=== PATIENT | female | born 1945 | race Asian ===

== ENCOUNTER 2020-10-12 17:30 | Emergency (ER) | payer MEDICARE, SELFPAY ==
[2020-10-12 17:31] VITALS: BP 146/73; PULSE 70; RESP 19; TEMP 36.7; O2SAT 97; BMI 19.3
--- NOTE | 2020-10-12 17:50 | CT_ITS ---
Procedure: CT ABDOMEN PELVIS W CON Referring Doctor: Rachid Bolden Patient Age:75Y CLINICAL INDICATION: epigastric pain Epigastric pain and acid reflux nausea 4 days COMPARISON: No exams were available for comparison TECHNIQUE: 75 cc Isovue 370 IV contrast utilized but no oral, enteric contrast given. Helical scanning performed 7 B seconds after contrast as well as 5 minutes delayed image through upper abdomen/liver Axial images obtained with sagittal and coronal reformats. All CT scans at the facility use one or more dose reduction, viz: automated exposure control, ma/kV adjustment per patient size (including targeted exams where dose is matched to indication, i.e. head), or iterative reconstruction technique. FINDINGS: Lower thorax: No acute finding. Trace scarring and atelectasis posterior lung bases. Tiny calcified granulomas posterior right lung base not of concern. Tortuous abdominal aorta. Heart: Borderline to-mild cardiomegaly ABDOMEN: Liver: .. Multiple hepatic cyst-appear to be benign hepatics cyst with no no abnormal enhancement specifically noted bilobed cyst at posterior medial RLL. This measures up to 2.5 cm X 1.7 cm. At the dome liver there multiple cyst largest measuring 19 mm of the posterior dome of liver. Gallbladder: Surgically removed Common duct dilatation of reflecting post cholecystectomy changes most likely. Warrants correlation with serum bilirubin. Common duct measures 9-10 mm just superior to the head of the pancreas. Central biliary radicles are upper normal, but no more proximal intrahepatic biliary ductal dilatation. Pancreas: Satisfactory no masses or peripancreatic fluid collections. Spleen: unremarkable normal size Adrenals: unremarkable ------- tract Kidneys/ureters: No urinary tract obstruction. No discrete calculi. Ureters unremarkable There are some very tiny less than 5-6 mm cyst at the kidneys bilaterally. Barely evident. PELVIS: Retroverted uterus extends to the posterior left pelvis. No adnexal masses but moderate sized. Urinary bladder. No masses or wall thickening or calculi urinary bladder. . GI tract: --------- Stomach: Unremarkable Small bowel: Undigested food and stool-like material throughout terminal ileum and distal most small bowel. This implies impaired impaired peristalsis-/suspect reflecting mild ileus. More proximal at the ileum there is slight increased fluid small bowel with scattered moderate air-fluid levels likely reflect the same.. The jejunum in proximal small bowel is more normal in caliber with some subtle radiopaque material likely from ingested food fluid or medicine Appendix: No evidence of appendicitis Large bowel. Moderate stool solid stool at the right colon and rectosigmoid. Extensive diverticulosis at the sigmoid colon with scattered diverticuli throughout the left colon. No acute diverticulitis Peritoneum: No abnormal fluid collections. No obvious inflammatory changes. No free air. Lymph nodes: No enlarged lymph nodes apparent. Vasculature: No tortuous abdominal aorta with mild atherosclerotic plaque and calcification throughout. No aneurysm.. No significant retroperitoneal findings Bones: No acute fracture nor lesion moderate levoscoliosis lumbar spine the degenerative disc changes and spondylosis lumbar spine IMPRESSION: 1. suspect mild ileus distal small bowel: . undigested food with stool-like material appearance throughout mildly distended terminal ileum and distal ileum-suggest impaired peristalsis most likely reflecting mild ileus. . The proximal ileum demonstrates borderline dilatation with increased fluid, and scattered moderate air-fluid levels of reflecting the same as
--- NOTE | 2020-10-12 17:51 | ECG_ITS ---
APPROVED REPORT Exam: Resting ECG HR:59 bpm ECG Measurements Heart Rate 59 AXES RI 182 P 55 QRSd 88 QRS 48 QT 412 T 44 QTc 407 Conclusion Sinus bradycardia Otherwise normal ECG Electronically signed by : Van Richardson, 10/13/2020 06:51:57
[2020-10-12 18:02] LABS: Microscopic, Urine URINE MICROSCOPIC (MICROSCOPIC)
[2020-10-12 18:03] LABS: Appearance,Urine CLEAR (Clear); Bilirubin,Urine Negative (Negative); Blood, Urine Negative (Negative); Color,Urine YELLOW (Yellow); Glucose,Urine (UA) Negative (Negative); Ketones,Urine Negative (Negative); Leukocyte Esterase,Urine Negative (Negative); Nitrate,Urine Negative (Negative); Protein,Urine Negative (Negative); Specific Gravity, Urine 1.015 (1.005-1.030); Urobilinogen,Urine 0.2 EU/dl (0.2)
[2020-10-12 18:04] LABS: Basophils % 0.5 % (0.1-2.0); Eosinophils # 0.2 K/mm3 (0.0-0.4); Eosinophils % 2.3 % (0.1-12.0); Hematocrit 48.9 % (37.0-47.0); Hemoglobin 16.2 g/dL (12.2-16.2); Lymphocytes # 1.9 K/mm3 (0.7-4.5); Lymphocytes % 21.7 % (10-50); Mean Corpuscular HGB Conc 33.2 g/dL (31.8-35.4); Mean Corpuscular Hemoglobin 30.2 pg (27.0-31.2); Mean Corpuscular Volume 90.8 fl (81-99); Mean Platelet Volume 7.2 fl (7.4-10.4); Monocytes # 0.4 K/mm3 (0.1-1.0); Neutrophils # 6.1 K/mm3 (1.8-7.8); Neutrophils % 71.5 % (37.0-80.0); Platelet Count 327 K/mm3 (142-424); Red Blood Count 5.38 M/mm3 (4.20-5.40); White Blood Count 8.6 K/mm3 (4.8-10.8)
[2020-10-12 18:07] LABS: Lipase 77 U/L (23-300)
[2020-10-12 18:08] VITALS: BP 152/85; PULSE 66; O2SAT 100
[2020-10-12 18:08] LABS: Alanine Aminotransferase 15 U/L (12-78); Albumin Level 5.1 g/dl (3.5-5.0); Albumin/Globulin Ratio 1.5 (1.1-1.8); Alkaline Phosphatase 105 U/L (38-126); Aspartate Amino Transferase 31 U/L (14-36); Bilirubin,Total 0.6 mg/dl (0.2-1.3); Blood Urea Nitrogen 15 mg/dl (7-17); Carbon Dioxide 30 mmol/L (22.0-30.0); Chloride 106 mmol/L (98-107); Creatinine Clearance Estimated 40 mL/min (50-200); Estimated Glomerular Filt Rate 98 ml/min (>60); GFR (African American) 118 ML/MIN (>60); Globulin 3.3 g/dL (1.3-3.2); Glucose 107 mg/dl (74-100); Sodium 141 mmol/L (136-145); Total Protein,Serum 8.4 g/dl (6.3-8.2)
[2020-10-12 18:09] LABS: Squamous Epithelial Cell,Urine Occasional #/hpf (0-5)
[2020-10-12 18:12] LABS: Activated Partial Thrombo Time 25.3 seconds (23.6-34.0)
[2020-10-12 18:23] LABS: Troponin I < 0.01 ng/ml (0.00-0.034)
--- NOTE | 2020-10-12 18:32 | PC.NURSE ---
Pt to rad.
--- NOTE | 2020-10-12 18:57 | HMH.EDABDPAI ---
ED Disposition Clinical Impression: GERD (gastroesophageal reflux disease) Disposition: Home, Self-Care Condition on Discharge: Good Instructions: DI for Acute Abdomen Additional Instructions: Can take Maalox. Follow-up with PCP on Wednesday. Return with any new or worsening symptoms. Referrals: Mick Soto MD [Primary Care Provider] - - Critical Care Critical Care Time: No Attestation: On 10/12/20, the high probability of a clinically significant, sudden or life threatening deterioration of the following system(s) required my full and direct attention, intervention and personal management. The time I documented below is in addition to time spent performing reported procedures but includes the following listed in this critical care notation. Medical Decision Making - Medical Records Medical records reviewed: Yes: I reviewed the patient's medical records. - Davon Inquiry Pt receiving controlled substance: No Vital Signs: 10/12/20 17:31 10/12/20 18:08 10/12/20 19:04 Temperature 98.0 F Temperature Source Oral Pulse Rate [Left Radial] 70 66 61 Respiratory Rate 19 Blood Pressure [Right Arm] 146/73 H 152/85 H 144/79 H Blood Pressure Mean [Right Arm] 97 107 100 Blood Pressure Source [Right Arm] Automatic Cuff Automatic Cuff Blood Pressure Position [Right Arm] Sitting Sitting 02 Sat by Pulse Oximetry 97 100 100 Oxygen Delivery Method Room Air Room Air Room Air - Lab Data Lab Results 10/12/20 17:46: Urine Color Yellow, Urine Appearance Clear, Urine pH 7.0, Ur Specific [place] 1.015, Urine Protein Negative, Urine Glucose (UA) Negative, Urine Ketones Negative, Urine Blood Negative, Urine Nitrate Negative, Urine Bilirubin Negative, Urine Urobilinogen 0.2, Ur Leukocyte Esterase Negative, Urine RBC None, Urine WBC None, Ur Squamous Epith Cells Occasional, Urine Bacteria None 10/12/20 17:46: WBC 8.6, RBC 5.38, Hgb 16.2, Hct 48.9 H, MCV 90.8, MCH 30.2, MCHC 33.2, RDW 13.0, Plt Count 327, MPV 7.2 L, Neut % (Auto) 71.5, Lymph % (Auto) 21.7, Tift % (Auto) 4.0, Eos % (Auto) 2.3, Baso % (Auto) 0.5, Neut # (Auto) 6.1, Lymph # (Auto) 1.9, Tift # (Auto) 0.4, Eos # (Auto) 0.2, Baso # (Auto) 0.0 10/12/20 17:46: APTT 25.3 10/12/20 17:46: Lipase 77 10/12/20 17:46: Sodium 141, Potassium 4.0, Chloride 106, Carbon Dioxide 30, Anion Gap 9.0, BUN 15, Creatinine 0.60, Estimated Creat Clear 40, Estimated GFR 98, Est GFR ( Amer) 118, Glucose 107 H, Calcium 10.0, Total Bilirubin 0.6, AST 31, ALT 15, Alkaline Phosphatase 105, Troponin I < 0.01, Total Protein 8.4 H, Albumin 5.1 H, Globulin 3.3 H, Albumin/Globulin Ratio 1.5 10/12/20 18:26: Lactate 1.0 Result diagrams: 10/12/20 17:46 10/12/20 17:46 Orders (Tests/Meds): ED MEDICATIONS Generic Name Dose Route Start Last Admin Trade Name Freq PRN Reason Stop Dose Admin Sodium Chloride 1,000 mls @ 999 mls/hr 10/12/20 18:00 10/12/20 19:09 Sod Chlor 0.9% 1000ml Bag IV 10/12/20 19:00 999 mls/hr .Q1H1M HAJA Administration Discontinued Medications Generic Name Dose Route Start Last Admin Trade Name Freq PRN Reason Stop Dose Admin Al Hydrox/Mg Hydrox/Simethicone 30 ml 10/12/20 17:52 10/12/20 19:09 Aluminum & Magnesium Hydroxide 30ml Udc PO 10/12/20 17:53 30 ml ONCE ONE Administration Iopamidol 75 ml 10/12/20 18:59 10/12/20 19:00 Iopamidol-370 (76%);100ml Bottle IV 10/12/20 19:00 75 ml ONCE ONE Administration Sodium Chloride 10 ml 10/12/20 18:59 10/12/20 19:00 Sodium Chloride 0.9% 10ml Syr (Rad Only) IV 10/12/20 19:00 10 ml ONCE ONE Administration ORDERS Category Date Time Status CT abdomen pelvis w con Stat Cat Scan 10/12/20 17:50 Taken Troponin I Q3H Lab 10/12/20 21:00 Ordered Troponin I Q3H Lab 10/13/20 00:00 Ordered EKG Request [ECG Request by /Ashwin] Stat Y 10/12/20 17:51 Ordered Medical Decision Narrative: The patient is a 75-year-old female with no significant past medical history who presents to the
[2020-10-12 19:04] VITALS: BP 144/79; PULSE 61; O2SAT 100
[2020-10-12 19:51] VITALS: BP 155/68; PULSE 68; RESP 16; TEMP 36.7; O2SAT 100
== END 2020-10-12 19:52 | disposition home or self-care (01) ==
PROVIDERS: Emergency Provider Emergency Medicine; PCP Family Medicine
DX: K21.9 Gastro-esophageal reflux disease without esophagitis (principal); Z88.0 Allergy status to penicillin
CPT/HCPCS: 74177; 80053; 81001; 83605; 83690; 84484; 85025; 85730; 93005; 96365; 99283; Q9967

== ENCOUNTER → 2022-01-13 10:30 | Outpatient (CLI) | payer MEDICARE, SELFPAY ==
--- NOTE | 2022-01-13 10:33 | CA_ITS ---
FINAL REPORT TECHNIQUE: Color Doppler, duplex Doppler and eddy scale sonography of the bilateral neck arterial vasculature was performed. Velocities were measured in the carotid arteries. Stenosis evaluation based on the validated velocity criteria. CLINICAL HISTORY: Bruit Patient states CVA 2 weeks ago FINDINGS: The peak systolic velocity of the right common carotid artery is 69 cm/s. The peak systolic velocity of the right internal carotid artery is 149 cm/s and end diastolic velocity 38 cm/s. The ICA/CCA ratio is 2.4. A mild amount of plaque is present. The right external carotid artery is patent. The right vertebral artery is patent with antegrade flow. The peak systolic velocity of the left common carotid artery is 76 cm/s. The peak systolic velocity of the left internal carotid artery is 93 cm/s and end diastolic velocity 35 cm/s. The ICA/CCA ratio is 1.5. A mild amount of plaque is present. The left external carotid artery is patent.The left vertebral artery is patent with antegrade flow. Multiple nodules are noted the left thyroid lobe measuring up to 3 x 3 mm. IMPRESSION: Less than 50% bilateral carotid stenosis. Bilateral patent vertebral arteries with antegrade flow. Several small left thyroid nodules, likely benign. If indicated follow-up in 12 months. Reviewed, Interpreted and Dictated by Antelmo Tinoco III, MD Transcribed by Latasha Flores Authenticated by Antelmo Tinoco III, MD on 01/13/2022 02:35:17 PM [facility]
[2022-01-13 17:57] LABS: Vitamin B12 855 pg/mL (239-931)
[2022-01-13 19:37] LABS: Hemoglobin A1C 6.1 % (4.0-6.0)
== END ==
PROVIDERS: Nurse Practitioner Family; PCP Family Medicine; Visit Provider Emergency Medicine
DX: I63.9 Cerebral infarction, unspecified (principal); R09.89 Other specified symptoms and signs involving the circulatory and respiratory systems; R73.9 Hyperglycemia, unspecified
CPT/HCPCS: 36415; 82607; 83036; 93880

== ENCOUNTER → 2022-01-19 10:30 | Outpatient (CLI) | payer MEDICARE, SELFPAY ==
--- NOTE | 2022-01-19 10:30 | MR_ITS ---
FINAL REPORT CLINICAL HISTORY: recent CVA 12-26-21. no prior FINDINGS: Multi planar MR imaging was obtained through the brain without contrast. The midline structures appear intact. There is no evidence of Chiari malformation. On T2 and flair axial images there is fairly extensive abnormal signal in the deep white matter bilaterally and is asymmetrically greater on the left than the right. On diffusion-weighted images there is no evidence of restricted diffusion. The visualized paranasal sinuses demonstrate normal signal voids. The seventh and eighth nerve root complexes are intact. IMPRESSION: Extensive deep white matter signal abnormality bilaterally, more evident on the left than the right. Findings are probably related to chronic microvascular ischemia. Correlation with carotid duplex may be of value given the asymmetry of the deep white matter abnormalities. Reviewed, Interpreted and Dictated by Ej Li MD Transcribed by Latasha Flores Authenticated by Ej Li MD on 01/19/2022 01:15:57 PM [facility]
== END ==
PROVIDERS: PCP Family Medicine; Visit Provider Nurse Practitioner Family
DX: E53.8 Deficiency of other specified B group vitamins (principal); I63.9 Cerebral infarction, unspecified; R00.0 Tachycardia, unspecified; R00.1 Bradycardia, unspecified; R53.83 Other fatigue; R73.9 Hyperglycemia, unspecified
CPT/HCPCS: 70551

== ENCOUNTER → 2022-01-26 09:13 | Outpatient (CLI) | payer MEDICARE, SELFPAY | PROVIDERS: PCP Family Medicine; Visit Provider Nurse Practitioner Family | DX: R00.0 Tachycardia, unspecified (principal) | CPT/HCPCS: 93270 ==

== ENCOUNTER → 2022-02-26 20:10 | Outpatient (CLI) | payer MEDICARE, SELFPAY | PROVIDERS: PCP Family Medicine; Visit Provider Nurse Practitioner Family | DX: G47.33 Obstructive sleep apnea (adult) (pediatric) (principal); R40.0 Somnolence | CPT/HCPCS: 95810 ==

== ENCOUNTER → 2022-03-18 10:29 | Outpatient (CLI) | payer MEDICARE, SELFPAY ==
[2022-03-18 11:17] LABS: Basophils # 0.1 K/mm3 (0-0.2); Basophils % 2.4 % (0.1-2.0); Eosinophils # 0.2 K/mm3 (0.0-0.4); Eosinophils % 3.4 % (0.1-12.0); Hematocrit 46.2 % (37.0-47.0); Hemoglobin 14.8 g/dL (12.2-16.2); Lymphocytes # 1.6 K/mm3 (0.7-4.5); Lymphocytes % 35.8 % (10-50); Mean Corpuscular Hemoglobin 30.4 pg (27.0-31.2); Mean Corpuscular Volume 94.9 fl (81-99); Mean Platelet Volume 8.5 fl (7.4-10.4); Monocytes # 0.2 K/mm3 (0.1-1.0); Monocytes % 5.3 % (1.7-9.3); Neutrophils # 2.3 K/mm3 (1.8-7.8); Neutrophils % 53.2 % (37.0-80.0); Platelet Count 316 K/mm3 (142-424); Red Blood Count 4.87 M/mm3 (4.20-5.40); Red Cell Distribution Width 13.2 % (11.5-17.5); White Blood Count 4.4 K/mm3 (4.8-10.8)
[2022-03-18 11:44] LABS: Chloride 105 mmol/L (98-107); Sodium 137 mmol/L (136-145)
[2022-03-18 11:45] LABS: Potassium 4.3 mmoL/L (3.5-5.1)
[2022-03-18 11:47] LABS: Alanine Aminotransferase 21 U/L (12-78); Albumin Level 4.5 g/dl (3.5-5.0); Alkaline Phosphatase 103 U/L (38-126); Anion Gap 9.3 mEq/L (5-15); Aspartate Amino Transferase 30 U/L (14-36); Bilirubin,Indirect 0.9 mg/dL (0.0-0.9); Bilirubin,Total 0.9 mg/dl (0.2-1.3); Bilirubin,Unconjugated 0.9 mg/dL (0.0-1.1); Blood Urea Nitrogen 20 mg/dl (7-17); Carbon Dioxide 27 mmol/L (22.0-30.0); Chol/HDL Ratio 2.4 (1-3.5); Cholesterol 148 mg/dl (140-200); Estimated Glomerular Filt Rate 97 ml/min (>60); GFR (African American) 118 ML/MIN (>60); Glucose 108 mg/dl (74-100); HDL Cholesterol 61 mg/dl (40-60); Total Protein,Serum 7.1 g/dl (6.3-8.2); Triglycerides 116 mg/dl (30-150); VLDL Cholesterol 23 mg/dL (0-40)
[2022-03-18 11:58] LABS: Direct LDL Cholesterol 65.34 mg/dL (100-129)
== END ==
PROVIDERS: Visit Provider Physician Assistant
DX: R42 Dizziness and giddiness; R00.1 Bradycardia, unspecified; I45.5 Other specified heart block; E78.5 Hyperlipidemia, unspecified; I65.29 Occlusion and stenosis of unspecified carotid artery; K21.9 Gastro-esophageal reflux disease without esophagitis
CPT/HCPCS: 36415; 80048; 80061; 80076; 85025; C9803; U0003; U0005

== ENCOUNTER → 2022-03-23 10:02 | Outpatient (CLI) | payer MEDICARE, SELFPAY ==
[2022-03-23 10:51] LABS: Basophils # 0.1 K/mm3 (0-0.2); Basophils % 1.1 % (0.1-2.0); Eosinophils # 0.2 K/mm3 (0.0-0.4); Eosinophils % 4.7 % (0.1-12.0); Hematocrit 39.7 % (37.0-47.0); Hemoglobin 13.4 g/dL (12.2-16.2); Lymphocytes # 1.4 K/mm3 (0.7-4.5); Lymphocytes % 31.4 % (10-50); Mean Corpuscular HGB Conc 33.6 g/dL (31.8-35.4); Mean Corpuscular Hemoglobin 30.5 pg (27.0-31.2); Mean Corpuscular Volume 90.8 fl (81-99); Mean Platelet Volume 7.2 fl (7.4-10.4); Monocytes # 0.2 K/mm3 (0.1-1.0); Monocytes % 5.1 % (1.7-9.3); Neutrophils # 2.6 K/mm3 (1.8-7.8); Neutrophils % 57.7 % (37.0-80.0); Platelet Count 265 K/mm3 (142-424); Red Blood Count 4.37 M/mm3 (4.20-5.40); Red Cell Distribution Width 12.5 % (11.5-17.5); White Blood Count 4.5 K/mm3 (4.8-10.8)
[2022-03-23 11:24] LABS: Anion Gap 10.1 mEq/L (5-15); Blood Urea Nitrogen 16 mg/dl (7-17); Calcium 8.9 mg/dl (8.4-10.2); Carbon Dioxide 30 mmol/L (22.0-30.0); Chloride 106 mmol/L (98-107); Estimated Glomerular Filt Rate 97 ml/min (>60); GFR (African American) 118 ML/MIN (>60); Glucose 157 mg/dl (74-100); Potassium 4.1 mmoL/L (3.5-5.1); Sodium 142 mmol/L (136-145)
== END ==
PROVIDERS: Visit Provider Internal Medicine
DX: Z01.818 Encounter for other preprocedural examination (principal); Z11.52 Encounter for screening for COVID-19; I49.5 Sick sinus syndrome
CPT/HCPCS: 36415; 80048; 85025; C9803; U0003; U0005

== ENCOUNTER → 2022-03-24 09:10 | Outpatient (CLI) | payer MEDICARE, SELFPAY ==
--- NOTE | 2022-03-24 | CA_ITS ---
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, cva, exsmoker 2D Dimensions LVOT 1.91 cm (M/F) 1.5-2.5 LA Volume 39.20 mL LA Volume Index 26.00 mL/m2 (M/F) 16-34 M-Mode Dimensions RVDd 2.21 cm (0.9-2.6) LA Diam 3.72 cm (1.9-4.0) LVDd 4.56 cm (3.5-5.7) Ao Diam 3.68 cm (2.0-3.7) LVDs 2.21 cm (3.5-5.7) IVSd 1.66 cm (0.6-1.1) PWd 0.70 cm (0.6-1.1) EF (Teich) 82.80% FS 51.50% EDV (Teich) 95.40 mL TAPSE 3.43 (<1.7) ESV (Teich) 16.40 mL LV Diastology E Decel Time 207.00 (160-240 msec) E/A Ratio 0.98 MED E' 11.00 (< 7 cm/sec) MED A' 9.70 cm/s E'/MED E' Ratio 6.55 (>14) LAT E' 10.60 (<10 cm/sec) LAT A' 9.30 cm/s E/LAT E' Ratio 6.80 (>14) Aortic Valve AO Peak GR. 7.60 mmHg Mitral Valve MV E Max Dylan. 72.00 (40-130 cm/s) MV A Velocity 73.00 (40-130 cm/s) E/A Ratio 0.98 MV Decel. Time 207.00 (160-240 ms) MV PHT 61.00 ms Pulmonary Valve PV Peak Velocity 180.00 (50-150 cm/s) Tricuspid Valve TR P. Velocity 272.00 cm/s RAP Estimate 10.00 mmHg RVSP 39.70 mmHg Left Ventricle Left atrium is normal size, left ventricle is normal size, visually estimated ejection fraction 55% with no regional wall motion abnormality, diastolic parameters are inconclusive. Right Ventricle Right atrium and right ventricle are normal size and contractility, there is pacemaker leads in the right ventricle. Aortic Valve Aortic valve is minimally thickened and fibrosed there is no aortic stenosis or aortic insufficiency. Mitral Valve Mitral valve grossly normal, there is trace mitral regurgitation. Tricuspid Valve Tricuspid grossly normal, there is trace tricuspid regurgitation, calculated right ventricular systolic pressure is 36 mmHg. Pulmonic Valve Pulmonic valve is poorly visualized. Great Vessels Aortic root is normal size. Inferior vena cava is poorly visualized. Pericardium No significant pericardial effusion noted. Conclusion 1. Normal left ventricular size, preserved left ventricular systolic function. Estimated ejection fraction 55% with no regional wall motion abnormality. Diastolic parameters are inconclusive. 2. Trace mitral and tricuspid regurgitation. Calculated right ventricular systolic pressure 36 mmHg. 3. No significant pericardial effusion noted. 4. Inferior vena cava is poorly visualized. Electronically signed by : Juanito Steel MD 03/24/2022 21:00:38
== END ==
PROVIDERS: PCP Family Medicine; Visit Provider Physician Assistant
DX: I45.5 Other specified heart block; I49.5 Sick sinus syndrome; R42 Dizziness and giddiness
CPT/HCPCS: 93306

== ENCOUNTER 2022-03-25 09:38 | Day surgery (SDC) | payer MEDICARE, SELFPAY ==
[2022-03-25] VITALS (8 sets, daily range): BP systolic 120–136; BP diastolic 72–84; PULSE 48–84; RESP 16–18; TEMP 36.6; O2SAT 97–99; BMI 17.0
--- NOTE | 2022-03-25 | IR_ITS ---
APPROVED REPORT Patient Location: Outpatient Pulmonary Function Technologist: JESUSITA Sin RT (R) PROCEDURES 1. Pocket formation for Permanent Pacemaker Placement. 2. Placement of an atrial sensing and pacing coil into the right atrial appendage. 3. Placement of a ventricular sensing and pacing coil in the right ventricular apex. 4. Permanent Pacemaker Placement. INDICATION Symptomatic Bradycardia Informed consent was obtained prior to the procedure. COMPLICATIONS None Estimated Blood Loss: Less than 10 mls TECHNIQUE 1% Lidocaine with epinephrine used to anesthetized the left anterior aspect of the chest. Scalpel was used to make the initial cutaneous incision while electrocautery was used to dissect down tinto the fascia. The fascia was lifted off the pectoralis muscle and digitally manipulated creating a pocket for the pacemaker. The patient was then placed in Trendelenburg position and the subclavian vein was accessed twice via the Selinger technique, there are two wires in the vein. A 6 Tunisian sheath was placed under fluoroscopic guidance into the subclavian vein over one of the wires while keeping the other wire in place within the subclavian vein. The dilator was removed from the sheath. Using fluoroscopic guidance, the ventricular lead was placed into the right ventricular apex, screwed and secured into place. Electronic interrogation proved acceptable thresholds and voltage within the lead. Using 3-0 silk, the ventricular lead was then secured into place. Lead was secured to the facia using the 3-0 silk. Following this, the sheath was pealed away. An additional 6 Tunisian fresh sheath and dilator was placed over the existing wire. Using fluoroscopic guidance, the atrial lead was the placed into the right atrial appendage and screwed and secured in place. Electrical interrogation demonstrated acceptable thresholds and voltage number. The atrial lead was then secured into place using 3-0 silk. 1 gram of Ancef was used to flush the pocket. Following the pacemaker generator being secured to the fascia and in place, Monocryl was used to close the subcutaneous layers while warren were used to close the cutaneous layer. A pressure dressing was placed and the patient was transferred to the postop holding area in stable condition for postoperative care. INTERROGATION Generator Model number: [employer] MRI DR IS-1 L311 Generator Serial number: [id number] Atrial lead model number: Ingevity + IS-1 Bi Positive Fix RA/RV 45 cm 7840 Atrial lead serial number: [id number] P-wave: 3.0 mV Impedence: 550 Ohms Threshold: 1.0V @ 0.4ms Current: 1.9 mA Right Ventricular lead model number: Ingevity + IS-1 Bi Positive Fix RA/RV 52 cm 7841 Right Ventricular lead serial number: [id number] R-wave: 12.0 mV Impedence: 850 Ohms Threshold: 0.6V @ 0.4ms Current: 0.8 mA Pacing Parameters: Mode: DDDR Base/Max Track:60 ppm / 130 ppm No diaphragmatic stimulation at 10 volts. IMPRESSION 1. Successful pocket formation for Permanent Pacemaker Placement. 2. Successful placement of an atrial sensing and pacing coil into the right atrial appendage. 3. Successful placement of a ventricular sensing and pacing coil in the right ventricular apex. 4. Successful permanent Pacemaker Placement. PLAN 1. Post op wound care, follow up office visit Electronically signed by : Kentrell Lopez MD 03/25/2022 15:20:02
--- NOTE | 2022-03-25 10:36 | P.PN_ITS ---
[facility] Anesthesia Checklist - Patient Identification Patient Identification: Arm Band, Family, Verbal (Name & ) - Structural Data Admitted From: Home Planned Operative Procedure/s: Pacemaker Placement Consent for Planned Operative Procedure(s) Verified: Yes Verified Documents: Surgical Consent - NPO Status Verified Time NPO: 00:00 - Chart Verification Results Verified: CBC, BMP - Airway Assessment C-Spine Mobility Assessed: Yes TMJ Mobility Assessed: Yes Dentition: Good Dentition - Neurological Assessment Level of Consciousness: Awake, Alert, Appropriate - Anesthesia Plan Anesthesia Risk discussed: Yes ASA Class: II Anesthesia Type: MAC [facility] History I have reviewed the patient's past medical history: Yes Medical History: Reports:: Cerebrovascular Accident, Gastroesophageal Reflux Disease(GERD), Hyperlipidemia, Hypertension Denies:: Cancer, Diabetes Mellitus Type 1, Diabetes Mellitus Type 2, Internal Pacemaker, MRSA, Seizures *Have you ever received a pneumonia vaccine?: Yes *Have you received a flu vaccine this season?: Yes Other Medical History: Reports: Glaucoma Anesthesia experience/problems:: none Laterality Cases: Bilateral: Carpal Tunnel Release Other Surgeries: Yes: Cholecystectomy, . No: Pacemaker Amputation: No Fractures: No - *Social History Last grade of school completed: 7th or 8th Smoking Status: Current some day smoker Tobacco Type: cigarettes # Packs/Day (cigarettes): 1 Alcohol Intake: never Alcohol Intake Frequency:: holidays/special occasions only Substance Use Type: denies use *Occupational Status:: retired Housing: house Household Members: spouse *Travel in the last 8 weeks: None Family Hx:: Other
--- NOTE | 2022-03-25 13:19 | XR_ITS ---
FINAL REPORT CLINICAL HISTORY: PACEMAKER PLACEMENT FINDINGS: The heart size is mildly large. There is a left subclavian pacemaker. There are overlying skin warren likely from recent placement. The mediastinum is normal. There is no focal infiltrate or edema. There is a small left pleural effusion. There is no pneumothorax. There is no osseous abnormality. IMPRESSION: No acute cardiopulmonary process. No pneumothorax. Reviewed, Interpreted and Dictated by Ej Li MD Transcribed by Vincenzo Bowman Authenticated by Ej Li MD on 03/25/2022 03:28:01 PM [facility]
== END 2022-03-25 15:27 | disposition home or self-care (01) ==
LOC: CATHLAB 09:40
PROVIDERS: PCP Family Medicine; Visit Provider Internal Medicine
DX: I49.5 Sick sinus syndrome (principal); I65.23 Occlusion and stenosis of bilateral carotid arteries; Z79.899 Other long term (current) drug therapy; K21.9 Gastro-esophageal reflux disease without esophagitis; E78.5 Hyperlipidemia, unspecified; Z87.891 Personal history of nicotine dependence
CPT/HCPCS: 33208; 71045; C1785; C1898

== ENCOUNTER → 2022-04-13 10:59 | Outpatient (CLI) | payer MEDICARE, SELFPAY ==
--- NOTE | 2022-04-13 11:00 | CA_ITS ---
FINAL REPORT TECHNIQUE: Sonographic images of the veins of the left upper extremity were obtained from axilla to antecubital fossa. Additionally, images of the internal jugular vein and subclavian vein were also obtained. CLINICAL HISTORY: left shoulder pain/s/p PPM placement. FINDINGS: The veins of the left upper extremity are compressible from axilla to antecubital fossa. Blood flow is demonstrated by both color and spectral Doppler as well. The internal jugular vein and subclavian vein are also patent. IMPRESSION: No evidence of venous thrombosis of the upper extremity. Reviewed, Interpreted and Dictated by Antelmo Tinoco III, MD Transcribed by Rosita Fagan Authenticated by Antelmo Tinoco III, MD on 04/13/2022 12:55:21 PM [facility]
== END ==
PROVIDERS: PCP Family Medicine; Visit Provider Physician Assistant
DX: E78.5 Hyperlipidemia, unspecified (principal); K21.9 Gastro-esophageal reflux disease without esophagitis; R07.89 Other chest pain; Z95.0 Presence of cardiac pacemaker; M79.602 Pain in left arm; M54.2 Cervicalgia
CPT/HCPCS: 93971

== ENCOUNTER → 2022-04-15 10:48 | Outpatient (CLI) | payer MEDICARE, SELFPAY ==
--- NOTE | 2022-04-15 13:33 | HMH.ITSHM ---
Current Home Medications as stated by this patient Jean Marie Corral or investment representative. []MULTIVITAMIN LATANOPROST ESOMEPRAZOLE DIAZEPAM CRANBERRY ATORVASTATIN ASA
== END ==
PROVIDERS: PCP Family Medicine; Visit Provider Nurse Practitioner
DX: R07.89 Other chest pain (principal)
CPT/HCPCS: 78452; 93017; A9502; J0280; J2785

== ENCOUNTER → 2022-05-18 12:12 | Outpatient (CLI) | payer MEDICARE, SELFPAY ==
--- NOTE | 2022-05-18 12:16 | XR_ITS ---
FINAL REPORT CLINICAL HISTORY: pain with lue radiation FINDINGS: CERVICAL SPINE Three views were obtained. There is no acute fracture. There is mild kyphosis centered at C4. There is straightening of the normal cervical curvature which could be due to positioning or muscle spasm. There is moderate degenerative change with multilevel osteophytes. There is no soft tissue abnormality. IMPRESSION: Degenerative change as above with no acute bony abnormality. Reviewed, Interpreted and Dictated by Antelmo Tinoco III, MD Transcribed by Latasha Flores Authenticated and [facility]
--- NOTE | 2022-05-18 12:16 | XR_ITS ---
FINAL REPORT CLINICAL HISTORY: pain w/o trauma. pt states she has a knot mid humerus with no injury FINDINGS: LEFT HUMERUS 2 views were obtained. There is no acute fracture or dislocation. There is mild degenerative change of the shoulder in the elbow. There is no soft tissue abnormality. IMPRESSION: Mild degenerative change with no acute bony abnormality. Reviewed, Interpreted and Dictated by Antelmo Tinoco III, MD Transcribed by Latasha Flores Authenticated and [facility]
== END ==
PROVIDERS: PCP Family Medicine; Visit Provider Family Medicine
DX: M79.602 Pain in left arm (principal); M54.2 Cervicalgia
CPT/HCPCS: 72040; 73060

== ENCOUNTER 2022-05-22 04:45 | Emergency (ER) | payer MEDICARE, SELFPAY ==
[2022-05-22] VITALS (8 sets, daily range): BP systolic 123–179; BP diastolic 53–119; PULSE 63–78; RESP 16–17; TEMP 36.6–36.7; O2SAT 97–99; BMI 20.2
--- NOTE | 2022-05-22 04:50 | ECG_ITS ---
APPROVED REPORT Exam: Resting ECG HR:75 bpm ECG Measurements Heart Rate 75 AXES TX 193 P 61 QRSd 86 QRS 32 QT 371 T 59 QTc 400 Conclusion SINUS RHYTHM NORMAL ECG UNCONFIRMED REPORT Electronically signed by : Van Richardson MD 05/22/2022 17:29:45
--- NOTE | 2022-05-22 05:02 | CT_ITS ---
PROCEDURE INFORMATION: Exam: CTA Chest With Contrast Exam date and time: 05/22/2022 5:45 AM Age: 76 years old Clinical indication: Pain; Other: Chest discomfort; Prior surgery; Surgery date: Post-operative (0-2 days); Surgery type: Pacemaker; Additional info: Pe protocol TECHNIQUE: Imaging protocol: Computed tomographic angiography of the chest with contrast. 3D rendering (Not supervised by radiologist): MIP and/or 3D reconstructed images were created by the technologist. Radiation optimization: All CT scans at this facility use at least one of these dose optimization techniques: automated exposure control; mA and/or kV adjustment per patient size (includes targeted exams where dose is matched to clinical indication); or iterative reconstruction. Contrast material: ISOVUE; Contrast volume: 70 ml; Contrast route: INTRAVENOUS (IV); COMPARISON: CR XR CHEST AP 03/25/2022 1:52 PM FINDINGS: Pulmonary arteries: Normal. No pulmonary emboli. Aorta: Unremarkable. No aortic aneurysm. No aortic dissection. Thyroid: 1.3 cm hypodensities seen inferiorly within the left thyroid gland. Lungs: Some mild upper lobe predominant centrilobular emphysema is present. Pleural spaces: Unremarkable. No pneumothorax. No pleural effusion. Heart: Unremarkable. No cardiomegaly. No pericardial effusion. Lymph nodes: Unremarkable. No enlarged lymph nodes. Liver: Multiple benign-appearing liver cysts are noted. Bones/joints: Unremarkable. No acute fracture. Soft tissues: Unremarkable. IMPRESSION: No evidence of pulmonary embolism or other acute process
--- NOTE | 2022-05-22 05:02 | XR_ITS ---
PROCEDURE INFORMATION: Exam: XR Chest Exam date and time: 05/22/2022 5:53 AM Age: 76 years old Clinical indication: Pain; Other: Discomfort; Prior surgery; Surgery date: Post-operative (0-2 days); Surgery type: Pacemaker; Additional info: Chest palpitations TECHNIQUE: Imaging protocol: Radiologic exam of the chest. Views: 1 view. COMPARISON: CT ANGIO CHEST PE PROTOCOL 05/22/2022 5:45 AM FINDINGS: Tubes, catheters and devices: Pacemaker is in good position. Lungs: Unremarkable. No consolidation. Pleural spaces: Unremarkable. No pleural effusion. No pneumothorax. Heart/Mediastinum: Unremarkable. No cardiomegaly. Bones/joints: Unremarkable. IMPRESSION: No acute process noted.
[2022-05-22 05:21] LABS: Basophils # 0.2 K/mm3 (0-0.2); Basophils % 3.9 % (0.1-2.0); Eosinophils # 0.3 K/mm3 (0.0-0.4); Eosinophils % 5.5 % (0.1-12.0); Hematocrit 46.5 % (37.0-47.0); Hemoglobin 14.9 g/dL (12.2-16.2); Lymphocytes % 35.1 % (10-50); Mean Corpuscular HGB Conc 32.1 g/dL (31.8-35.4); Mean Corpuscular Hemoglobin 30.2 pg (27.0-31.2); Mean Corpuscular Volume 94.1 fl (81-99); Mean Platelet Volume 7.5 fl (7.4-10.4); Monocytes # 0.4 K/mm3 (0.1-1.0); Monocytes % 6.2 % (1.7-9.3); Neutrophils % 53.1 % (37.0-80.0); Platelet Count 326 K/mm3 (142-424); Red Blood Count 4.94 M/mm3 (4.20-5.40); Red Cell Distribution Width 13.4 % (11.5-17.5); White Blood Count 5.7 K/mm3 (4.8-10.8)
[2022-05-22 05:22] LABS: Chloride 108 mmol/L (98-107); Potassium 4.3 mmoL/L (3.5-5.1); Sodium 140 mmol/L (136-145)
[2022-05-22 05:24] LABS: Alanine Aminotransferase 26 U/L (12-78); Alkaline Phosphatase 96 U/L (38-126); Aspartate Amino Transferase 39 U/L (14-36); Bilirubin,Total 0.6 mg/dl (0.2-1.3); Blood Urea Nitrogen 19 mg/dl (7-17); Creatinine Clearance Estimated 40 mL/min (50-200); Estimated Glomerular Filt Rate 97 ml/min (>60); GFR (African American) 118 ML/MIN (>60)
[2022-05-22 05:25] LABS: Albumin Level 4.7 g/dl (3.5-5.0); Albumin/Globulin Ratio 1.5 (1.1-1.8); Anion Gap 7.3 mEq/L (5-15); Calcium 9.7 mg/dl (8.4-10.2); Carbon Dioxide 29 mmol/L (22.0-30.0); Globulin 3.1 g/dL (1.3-3.2); Glucose 139 mg/dl (74-100); Total Protein,Serum 7.8 g/dl (6.3-8.2)
[2022-05-22 05:31] LABS: C-Reactive Protein 0.3 mg/L (0-4)
[2022-05-22 05:32] LABS: Lactic Acid 1.1 mmol/L (0.7-2.1)
[2022-05-22 05:45] LABS: T4 (Thyroxine) 11.4 ug/dl (5.53-11.0)
[2022-05-22 05:48] LABS: Erythrocyte Sedimentation Rate 5 mm/hr (0-30); Troponin I < 0.01 ng/ml (0.00-0.034)
[2022-05-22 05:58] LABS: Thyroid Stimulating Hormone 1.52 uIU/mL (0.465-4.68)
--- NOTE | 2022-05-22 06:44 | PC.NURSE ---
Pt given pillow and warm blanket for comfort. No other needs at this time.
--- NOTE | 2022-05-22 06:58 | HMH.EDCP ---
ED Disposition Clinical Impression: Palpitations Disposition: Home, Self-Care Condition on Discharge: Good Instructions: DI for Palpitations Additional Instructions: see card this am Referrals: Mick Soto MD [Primary Care Provider] - - Critical Care Critical Care Time: No Attestation: On 05/22/22, the high probability of a clinically significant, sudden or life threatening deterioration of the following system(s) required my full and direct attention, intervention and personal management. The time I documented below is in addition to time spent performing reported procedures but includes the following listed in this critical care notation. Medical Decision Making - Medical Records Medical records reviewed: Yes: I reviewed the patient's medical records. - Davon Inquiry Pt receiving controlled substance: No Vital Signs: 05/22/22 04:53 05/22/22 06:30 05/22/22 06:51 Temperature 97.9 F Temperature Source Oral Pulse Rate 63 65 Pulse Rate [Right Brachial] 78 Respiratory Rate 16 Blood Pressure 155/82 H 123/53 L Blood Pressure [Right Arm] 179/119 H Blood Pressure Mean Blood Pressure Mean [Right Arm] 139 Blood Pressure Source [Right Arm] Automatic Cuff Blood Pressure Position [Right Arm] Supine 02 Sat by Pulse Oximetry 97 98 99 Oxygen Delivery Method Room Air Room Air Room Air 05/22/22 07:20 05/22/22 07:50 05/22/22 08:20 Temperature Temperature Source Pulse Rate 64 65 67 Pulse Rate [Right Brachial] Respiratory Rate 16 16 16 Blood Pressure 128/72 133/67 135/77 Blood Pressure [Right Arm] Blood Pressure Mean 87 93 96 Blood Pressure Mean [Right Arm] Blood Pressure Source [Right Arm] Blood Pressure Position [Right Arm] 02 Sat by Pulse Oximetry 99 99 97 Oxygen Delivery Method 05/22/22 08:50 Temperature Temperature Source Pulse Rate 67 Pulse Rate [Right Brachial] Respiratory Rate 17 Blood Pressure 140/84 Blood Pressure [Right Arm] Blood Pressure Mean 102 Blood Pressure Mean [Right Arm] Blood Pressure Source [Right Arm] Blood Pressure Position [Right Arm] 02 Sat by Pulse Oximetry 98 Oxygen Delivery Method - Lab Data Lab results reviewed: Yes: I reviewed the patient's lab results. Lab Results 05/22/22 04:53: SARS-CoV-2 (PCR) Not detected, Influenza A Untype (PCR) Not detected, Influenza Type B (PCR) Not detected 05/22/22 05:00: WBC 5.7, RBC 4.94, Hgb 14.9, Hct 46.5, MCV 94.1, MCH 30.2, MCHC 32.1, RDW 13.4, Plt Count 326, MPV 7.5, Neut % (Auto) 53.1, Lymph % (Auto) 35.1, Grafton % (Auto) 6.2, Eos % (Auto) 5.5, Baso % (Auto) 3.9 H, Neut # (Auto) 3.0, Lymph # (Auto) 2.0, Grafton # (Auto) 0.4, Eos # (Auto) 0.3, Baso # (Auto) 0.2, ESR 5 05/22/22 05:00: Sodium 140, Potassium 4.3, Chloride 108 H, Carbon Dioxide 29, Anion Gap 7.3, BUN 19 H, Creatinine 0.60, Estimated Creat Clear 40, Estimated GFR 97, Est GFR ( Amer) 118, Glucose 139 H, Calcium 9.7, Total Bilirubin 0.6, AST 39 H, ALT 26, Alkaline Phosphatase 96, Troponin I < 0.01, C-Reactive Protein 0.3, Total Protein 7.8, Albumin 4.7, Globulin 3.1, Albumin/Globulin Ratio 1.5, TSH 1.52, Thyroxine (T4) 11.4 H 05/22/22 05:00: Lactate 1.1 05/22/22 05:00: NT-Pro-B Natriuret Pep 86.0 05/22/22 06:13: Urine Color Yellow, Urine Appearance Clear, Urine pH 7.0, Ur Specific Mona <= 1.005, Urine Protein Negative, Urine Glucose (UA) Negative, Urine Ketones Negative, Urine Blood Negative, Urine Nitrate Negative, Urine Bilirubin Negative, Urine Urobilinogen 0.2, Ur Leukocyte Esterase Negative, Urine RBC None, Urine WBC None, Ur Squamous Epith Cells Occasional, Urine Bacteria None 05/22/22 08:05: Troponin I < 0.01 Result diagrams: 05/22/22 05:00 05/22/22 05:00 Orders (Tests/Meds): ED MEDICATIONS Discontinued Medications Generic Name Dose Route Start Last Admin Trade Name Freq PRN Reason Stop Dose Admin Sodium Chloride 1,000 mls @ 999 mls/hr 05/22/22 05:15 Sod Chlor 0.9% 1000ml Bag IV 06/24/22 06
--- NOTE | 2022-05-22 06:59 | PC.NURSE ---
Family at bedside
[2022-05-22 07:07] LABS: Microscopic, Urine URINE MICROSCOPIC (MICROSCOPIC)
[2022-05-22 07:09] LABS: Appearance,Urine CLEAR (Clear); Bilirubin,Urine Negative (Negative); Blood, Urine Negative (Negative); Color,Urine YELLOW (Yellow); Glucose,Urine (UA) Negative (Negative); Ketones,Urine Negative (Negative); Leukocyte Esterase,Urine Negative (Negative); Nitrate,Urine Negative (Negative); Protein,Urine Negative (Negative); Specific Gravity, Urine <= 1.005 (1.005-1.030); Urobilinogen,Urine 0.2 EU/dl (0.2)
[2022-05-22 07:19] LABS: Coronavirus 19, PCR Not Detected (NotDetected); Influenza A, PCR Not Detected (NotDetected); Influenza B, PCR Not Detected (NotDetected)
[2022-05-22 07:20] LABS: Squamous Epithelial Cell,Urine Occasional #/hpf (0-5)
--- NOTE | 2022-05-22 07:43 | PC.NURSE ---
warm blankets provided, family at bedside.
[2022-05-22 08:33] LABS: Troponin I < 0.01 ng/ml (0.00-0.034)
== END 2022-05-22 09:30 | disposition home or self-care (01) ==
PROVIDERS: Emergency Provider Emergency Medicine; PCP Family Medicine
DX: R00.2 Palpitations (principal); Z86.73 Personal history of transient ischemic attack (TIA), and cerebral infarction without residual deficits; Z86.69 Personal history of other diseases of the nervous system and sense organs; K21.9 Gastro-esophageal reflux disease without esophagitis; E78.5 Hyperlipidemia, unspecified; I10 Essential (primary) hypertension; Z95.0 Presence of cardiac pacemaker
CPT/HCPCS: 71045; 71275; 80053; 81001; 83605; 83880; 84436; 84443; 84484; 85025; 85651; 86140; 87040; 93005; 93306; 99284; C9803; Q9967; U0003; U0005

== ENCOUNTER → 2022-05-22 11:14 | Outpatient (CLI) | payer MEDICARE, SELFPAY ==
--- NOTE | 2022-05-22 11:34 | CA_ITS ---
APPROVED REPORT EXAM: Comprehensive 2D, Doppler, and color-flow Echocardiogram Supervisor Lump Room: Janeen Bejarano RVT Ht: 5 ft 3 in Wt: 113lbs BSA: 1.52 BP: 145/80 mmHg Indications: CP,BENNETT,PACER,PALPS 2D Dimensions LVOT 1.92 cm (M/F) 1.5-2.5 LA Volume 21.00 mL LA Volume Index 13.90 mL/m2 (M/F) 16-34 M-Mode Dimensions RVDd 2.08 cm (0.9-2.6) LA Diam 3.06 cm (1.9-4.0) LVDd 4.59 cm (3.5-5.7) Ao Diam 3.06 cm (2.0-3.7) LVDs 3.18 cm (3.5-5.7) IVSd 0.67 cm (0.6-1.1) PWd 0.44 cm (0.6-1.1) EF (Teich) 58.40% FS 30.70% EDV (Teich) 96.80 mL TAPSE 2.54 (<1.7) ESV (Teich) 40.30 mL LV Diastology E Decel Time 293.00 (160-240 msec) E/A Ratio 0.8 MED E' 7.80 (< 7 cm/sec) E'/MED E' Ratio 6.59 (>14) LAT E' 10.10 (<10 cm/sec) E/LAT E' Ratio 5.09 (>14) Aortic Valve AO Peak GR. 4.50 mmHg Mitral Valve MV E Max Dylan. 51.00 (40-130 cm/s) MV A Velocity 66.00 (40-130 cm/s) E/A Ratio 0.77 MV Decel. Time 293.00 (160-240 ms) MV PHT 86.00 ms Pulmonary Valve PV Peak Velocity 86.00 (50-150 cm/s) Tricuspid Valve TR P. Velocity 264.00 cm/s RAP Estimate 10.00 mmHg RVSP 38.00 mmHg Left Ventricle Left atrium is mildly enlarged, left ventricle is normal size mild concentric left ventricular hypertrophy, estimated ejection fraction 55% with no regional wall motion abnormality, grade 1 diastolic dysfunction seen without tissue Doppler evidence of raise left atrial pressure. Right Ventricle Right atrium and right ventricle are normal size and contractility, the pacemaker leads in the right atrium and right ventricle. Aortic Valve Aortic valve is minimally thickened and fibrosed there is no aortic stenosis aortic insufficiency. Mitral valve grossly normal, there is trace mitral regurgitation. Tricuspid Valve Tricuspid grossly normal, there is trace tricuspid regurgitation, calculated right ventricular systolic pressure 32 mmHg. Pulmonic Valve Pulmonic valve is poorly visualized. Great Vessels Aortic root is normal size. Inferior vena cava is normal size with normal inspiratory collapse. Pericardium No significant pericardial effusion noted. Conclusion 1. Normal left ventricular size mild concentric left ventricular hypertrophy, estimated ejection fraction 55% with no regional wall motion abnormality, grade 1 diastolic dysfunction seen without tissue Doppler evidence of raise left atrial pressure. 2. Trace mitral and tricuspid regurgitation, calculated right ventricular systolic pressure 32 mmHg. 3. No significant pericardial effusion. 4. Inferior vena cava normal size with normal inspiratory collapse. Electronically signed by : Juanito Steel MD 05/22/2022 12:55:15
== END ==
PROVIDERS: PCP Family Medicine; Visit Provider Internal Medicine Cardiovascular Disease
DX: E78.5 Hyperlipidemia, unspecified (principal); R00.2 Palpitations; R53.83 Other fatigue; R68.83 Chills (without fever); Z95.0 Presence of cardiac pacemaker
CPT/HCPCS: 93306

== ENCOUNTER → 2022-08-18 10:25 | Outpatient (CLI) | payer MEDICARE, SELFPAY ==
--- NOTE | 2022-08-18 10:33 | XR_ITS ---
FINAL REPORT TECHNIQUE: Chest PA & Lateral CLINICAL HISTORY: chest pain, pain around pacemaker COMPARISON: May 22, 2022 FINDINGS: 2 views of the chest were performed. A left subclavian pacemaker is present. The heart size is mildly enlarged. The mediastinum is within normal limits. There is no acute cardiopulmonary process. There are no pleural effusions. There is no pneumothorax. The bony thorax appears intact. IMPRESSION: No acute cardiopulmonary process. Reviewed, Interpreted and Dictated by Ej Li MD Transcribed by Latasha Flores Authenticated and [facility]
== END ==
LOC: RT 08-19 01:09 → RAD 08-20 09:08
PROVIDERS: PCP Internal Medicine; Visit Provider Internal Medicine Cardiovascular Disease
DX: R06.00 Dyspnea, unspecified (principal); R07.89 Other chest pain
CPT/HCPCS: 71046

== ENCOUNTER → 2022-12-29 14:41 | Outpatient (CLI) | payer MEDICARE, SELFPAY ==
--- NOTE | 2022-12-29 14:44 | XR_ITS ---
FINAL REPORT CLINICAL HISTORY: cough COMPARISON: 08/18/2022 FINDINGS: Two views of the chest were obtained. A left subclavian pacemaker is present. A The heart size and pulmonary vascularity are within normal limits. The mediastinum is normal. No acute pulmonary abnormality is identified. There is no pneumothorax. The bony thorax is intact. IMPRESSION: No active cardiopulmonary disease. Reviewed, Interpreted and Dictated by Antelmo Tinoco III, MD Transcribed by Latasha Flores Authenticated and [facility]
--- NOTE | 2022-12-29 14:44 | XR_ITS ---
FINAL REPORT CLINICAL HISTORY: left arm pain, knot on shoulder , patient states since pacemaker put in COMPARISON: 05/18/2022 FINDINGS: LEFT SHOULDER Three views demonstrate no acute fracture or dislocation. There are mild degenerative changes of the acromioclavicular and glenohumeral joints. The visualized bony structures are well aligned. A left subclavian pacemaker is present. No soft tissue abnormality is seen. IMPRESSION: Mild degenerative changes, similar to the prior. No acute bony abnormality. Reviewed, Interpreted and Dictated by Antelmo Tinoco III, MD Transcribed by Latasha Flores Authenticated and . [facility]
== END ==
PROVIDERS: PCP Family Medicine; Visit Provider Nurse Practitioner
DX: M79.602 Pain in left arm (principal); R05.9 Cough, unspecified; M25.512 Pain in left shoulder
CPT/HCPCS: 71046; 73030

== ENCOUNTER 2023-04-20 06:17 | Day surgery (SDC) | payer MEDICARE, SELFPAY ==
[2023-04-19 10:55] VITALS: BMI 18.9
[2023-04-20] VITALS (7 sets, daily range): BP systolic 84–127; BP diastolic 57–72; PULSE 69–80; RESP 16–18; TEMP 36.1–36.4; O2SAT 97–99
--- NOTE | 2023-04-20 07:04 | P.PN_ITS ---
[facility] Disclaimer: The information contained in this section may have been updated after the patient was seen, as this information can be updated by other users. Medical History (Updated 04/20/23 @ 06:34 by Carlos Louis RN) Cardiac pacemaker in situ Coughing Dizziness History of stroke HTN (hypertension) Left arm pain Pacemaker Sinus pause Symptomatic bradycardia Tachy-pérez syndrome Surgical History History of cholecystectomy Family History Other No significant family history Social History Smoking Status: Current some day smoker tobacco type: cigarettes packs per day: 1 alcohol intake: current substance use type: denies use current occupational status: retired Travel in the last 8 weeks: None household members: spouse housing: house current occupational exposures/hazards: No caffeine: Yes [facility] Anesthesia Checklist Patient Identification Patient Identification: Arm Band and Family Structural Data Admitted From: Home Planned Operative Procedure/s: Colonoscopy Consent for Planned Operative Procedure(s) Verified: Yes Verified Documents: Surgical Consent and History and Physical NPO Status Verified Time NPO: 00:00 Additional verifications Patient : No Anesthesia Reactions: No Hx Blood Transfusions: No Blood Transfusion Reaction: No Cephalosporin Allergy: No Previous Colonoscopy: No Airway Assessment C-Spine Mobility Assessed: Yes TMJ Mobility Assessed: Yes Dentition: Good Dentition Neurological Assessment Level of Consciousness: Awake, Alert, Appropriate and Follows Commands Hx Seizures: No Numbness or tingling in extremities: No Anesthesia Plan Anesthesia Risk discussed: Yes ASA Class: II Anesthesia Type: MAC Preoperative Comments Pre-Operative Comments: Pacemaker.
--- NOTE | 2023-04-20 08:06 | P.PCN_ITS ---
Procedure: Date: 04/20/23 Patient Date of :: 1945 Procedure Performed:: Colonoscopy with polypectomy Indications:: History of colon polyps Performing Provider:: Julio Sawant MD Referring Provider:: . Sedation:: Monitored anesthesia care Procedure:: After informed consent was obtained the patient was taken to the endoscopy suite. Sedation ensued after the patient was transferred to the left lateral d ecubitus position. Pulse, blood pressure, and oxygen saturation were monitored throughout the procedure. Digital rectal exam revealed no significant abnormality. The colonoscope was placed in position. The entire colon was evaluated. The colonoscope was carefully removed and the patient was transferred to recovery in stable condition. Please see findings and specimens below for detail. Findings:: Bowel preparation moderate Profound lack of relaxation Significant tortuosity Pandiverticulosis Partially-pedunculated polyp at 45 cm Specimens:: Partially-pedunculated polyp at 45 cm (cold snare) Recommendations:: Timing of repeat colonoscopy is pending pathology will likely be around 2-3 years secondary to history of polyps, lack of relaxation, moderate bowel preparation, and tortuosity. Complications:: No immediate Estimated blood obtained (mL): 1
== END 2023-04-20 08:45 | disposition home or self-care (01) ==
PROVIDERS: PCP Family Medicine; Visit Provider Surgery
PROC: 0DJD8ZZ Inspection of Lower Intestinal Tract, Via Natural or Artificial Opening Endoscopic (ICD-10-PCS; principal; 2023-04-20 07:30)
DX: Z12.11 Encounter for screening for malignant neoplasm of colon (principal); K63.5 Polyp of colon; Z86.010 Personal history of colon polyps
CPT/HCPCS: 45380; 88305; J1610

== ENCOUNTER → 2023-07-13 11:20 | Outpatient (CLI) | payer MEDICARE, SELFPAY ==
[2023-07-13 12:03] LABS: Basophils % 0.7 % (0.1-2.0); Eosinophils # 0.3 K/mm3 (0.0-0.4); Hematocrit 43.5 % (37.0-47.0); Hemoglobin 13.9 g/dL (12.2-16.2); Lymphocytes # 1.2 K/mm3 (0.7-4.5); Mean Corpuscular HGB Conc 31.8 g/dL (31.8-35.4); Mean Corpuscular Hemoglobin 29.7 pg (27.0-31.2); Mean Corpuscular Volume 93.2 fl (81-99); Mean Platelet Volume 7.5 fl (7.4-10.4); Monocytes # 0.3 K/mm3 (0.1-1.0); Monocytes % 5.1 % (1.7-9.3); Neutrophils # 4.3 K/mm3 (1.8-7.8); Neutrophils % 70.3 % (37.0-80.0); Platelet Count 286 K/mm3 (142-424); Red Blood Count 4.67 M/mm3 (4.20-5.40); White Blood Count 6.1 K/mm3 (4.8-10.8)
[2023-07-13 13:46] LABS: Alanine Aminotransferase 22 U/L (12-78); Albumin Level 4.3 g/dl (3.5-5.0); Albumin/Globulin Ratio 1.5 (1.1-1.8); Alkaline Phosphatase 112 U/L (38-126); Anion Gap 12.3 mEq/L (5-15); Aspartate Amino Transferase 28 U/L (14-36); Bilirubin,Total 0.5 mg/dl (0.2-1.3); Blood Urea Nitrogen 18 mg/dl (7-17); Carbon Dioxide 28 mmol/L (22.0-30.0); Chloride 105 mmol/L (98-107); Estimated Glomerular Filt Rate 97 ml/min (>60); GFR (African American) 118 ML/MIN (>60); Globulin 2.8 g/dL (1.3-3.2); Glucose 174 mg/dl (74-100); Potassium 4.3 mmoL/L (3.5-5.1); Sodium 141 mmol/L (136-145); Total Protein,Serum 7.1 g/dl (6.3-8.2)
--- NOTE | 2023-07-13 15:20 | CT_ITS ---
FINAL REPORT CLINICAL HISTORY: LLQ abdominal pain, diarrhea, milton blood in stool COMPARISON: 10/12/2020 FINDINGS: CT OF THE ABDOMEN AND PELVIS WITH CONTRAST Axial CT images of the abdomen and pelvis were obtained after the administration of oral and iv contrast. Coronal reformatted images were also obtained and reviewed.This study was performed with techniques to keep radiation doses as low as reasonably achievable (ALARA). Individualized dose reduction techniques using automated exposure control or adjustment of mA and/or kV according to the patient's size were employed. Abdomen: There is mild scarring or atelectasis in the lung bases. The heart is normal in size. There are multiple hepatic cysts. Postcholecystectomy. The spleen is unremarkable. No adrenal mass is present. The pancreas has an unremarkable appearance. The kidneys are normal, without evidence of mass or hydronephrosis. The aorta is normal in caliber. There is no free fluid or adenopathy. No mass or abnormal fluid collection is seen. Pelvis: The appendix is not well-visualized. The urinary bladder is unremarkable. No inflammatory process is seen. There is no evidence of mass or adenopathy. There is severe descending and sigmoid diverticulosis with presumed muscular hypertrophy in the sigmoid region. Localized colitis not entirely excluded. Levoscoliosis and degenerative change of the lumbar spine. IMPRESSION: Severe diverticulosis with presumed muscular hypertrophy in the sigmoid region. Localized colitis not excluded. Reviewed, Interpreted and Dictated by Antelmo Tinoco III, MD Transcribed by Maria Elena Costa Authenticated and [facility]
== END ==
PROVIDERS: PCP Family Medicine; Visit Provider Nurse Practitioner
DX: R19.7 Diarrhea, unspecified (principal); K92.1 Melena; R10.32 Left lower quadrant pain
CPT/HCPCS: 36415; 74177; 80053; 85025; Q9967

== ENCOUNTER → 2023-07-16 23:44 | Outpatient (CLI) | payer MEDICARE, SELFPAY ==
[2023-07-16 19:37] LABS: Hemoglobin A1C 6.2 % (4.0-6.0)
== END ==
PROVIDERS: PCP Family Medicine; Visit Provider Family Medicine
DX: E11.9 Type 2 diabetes mellitus without complications (principal); R10.9 Unspecified abdominal pain
CPT/HCPCS: 83036

== ENCOUNTER → 2023-08-11 14:46 | Outpatient (CLI) | payer MEDICARE, SELFPAY ==
[2023-08-11 15:48] LABS: Basophils # 0.1 K/mm3 (0-0.2); Eosinophils # 0.4 K/mm3 (0.0-0.4); Eosinophils % 6.2 % (0.1-12.0); Hematocrit 43.6 % (37.0-47.0); Hemoglobin 14.2 g/dL (12.2-16.2); Lymphocytes # 1.9 K/mm3 (0.7-4.5); Lymphocytes % 33.6 % (10-50); Mean Corpuscular HGB Conc 32.5 g/dL (31.8-35.4); Mean Corpuscular Hemoglobin 30.3 pg (27.0-31.2); Mean Corpuscular Volume 93.3 fl (81-99); Mean Platelet Volume 7.7 fl (7.4-10.4); Monocytes # 0.3 K/mm3 (0.1-1.0); Monocytes % 4.9 % (1.7-9.3); Neutrophils % 54.3 % (37.0-80.0); Platelet Count 292 K/mm3 (142-424); Red Blood Count 4.67 M/mm3 (4.20-5.40); Red Cell Distribution Width 13.2 % (11.5-17.5); White Blood Count 5.6 K/mm3 (4.8-10.8)
[2023-08-11 17:26] LABS: Alanine Aminotransferase 26 U/L (12-78); Albumin Level 4.6 g/dl (3.5-5.0); Alkaline Phosphatase 100 U/L (38-126); Anion Gap 12.5 mEq/L (5-15); Aspartate Amino Transferase 36 U/L (14-36); Bilirubin,Direct 0.1 mg/dl (0.0-0.4); Bilirubin,Indirect 0.1 mg/dL (0.0-0.9); Bilirubin,Total 0.2 mg/dl (0.2-1.3); Bilirubin,Unconjugated 0.1 mg/dL (0.0-1.1); Blood Urea Nitrogen 23 mg/dl (7-17); Calcium 9.3 mg/dl (8.4-10.2); Carbon Dioxide 27 mmol/L (22.0-30.0); Chloride 105 mmol/L (98-107); Chol/HDL Ratio 3.8 (1-3.5); Cholesterol 134 mg/dl (140-200); Estimated Glomerular Filt Rate 81 ml/min (>60); GFR (African American) 98 ML/MIN (>60); Glucose 175 mg/dl (74-100); HDL Cholesterol 35 mg/dl (40-60); Magnesium 2.1 mg/dl (1.6-2.3); Potassium 4.5 mmoL/L (3.5-5.1); Sodium 140 mmol/L (136-145); Total Protein,Serum 7.3 g/dl (6.3-8.2)
[2023-08-11 17:42] LABS: Free T4 (Free Thyroxine) 0.99 ng/dl (0.78-2.19)
[2023-08-11 17:49] LABS: Triglycerides 546 mg/dl (30-150)
[2023-08-11 17:56] LABS: Thyroid Stimulating Hormone 0.53 uIU/mL (0.465-4.68)
[2023-08-11 20:03] LABS: Direct LDL Cholesterol 52.91 mg/dL (100-129)
== END ==
PROVIDERS: PCP Family Medicine; Visit Provider Nurse Practitioner
DX: E78.2 Mixed hyperlipidemia (principal); I10 Essential (primary) hypertension; K21.9 Gastro-esophageal reflux disease without esophagitis; Z95.0 Presence of cardiac pacemaker; E78.5 Hyperlipidemia, unspecified
CPT/HCPCS: 36415; 80048; 80061; 80076; 83735; 84439; 84443; 85025

== ENCOUNTER 2024-01-13 09:03 | Outpatient (CLI) | payer MEDICARE, SELFPAY ==
--- NOTE | 2024-01-13 09:08 | XR_ITS ---
FINAL REPORT CLINICAL HISTORY: left shoulder pain radiates into neck and down into arm limited rom FINDINGS: Left shoulder Three views were obtained. There is no acute fracture or dislocation. There is mild AC and glenohumeral joint degenerative change. No soft tissue abnormality is identified. IMPRESSION: Mild degenerative changes. Reviewed, Interpreted and Dictated by Antelmo Tinoco III, MD Transcribed by Tamra Roa Authenticated and [facility]
== END 2024-01-13 23:59 ==
LOC: RAD 09:04
PROVIDERS: PCP Family Medicine; Visit Provider Orthopaedic Surgery
DX: M25.512 Pain in left shoulder (principal)
CPT/HCPCS: 73030

== ENCOUNTER 2024-08-02 14:03 | Outpatient (CLI) | payer MEDICARE, SELFPAY ==
[2024-08-02 14:44] LABS: Basophils # 0.1 K/mm3 (0-0.2); Basophils % 1.1 % (0.1-2.0); Eosinophils # 0.1 K/mm3 (0.0-0.4); Eosinophils % 2.4 % (0.1-12.0); Hematocrit 40.6 % (37.0-47.0); Hemoglobin 12.8 g/dL (12.2-16.2); Lymphocytes # 1.3 K/mm3 (0.7-4.5); Lymphocytes % 22.6 % (10-50); Mean Corpuscular HGB Conc 31.5 g/dL (31.8-35.4); Mean Corpuscular Hemoglobin 30.6 pg (27.0-31.2); Mean Corpuscular Volume 97.2 fl (81-99); Mean Platelet Volume 7.8 fl (7.4-10.4); Monocytes # 0.3 K/mm3 (0.1-1.0); Neutrophils # 3.8 K/mm3 (1.8-7.8); Platelet Count 323 K/mm3 (142-424); Red Blood Count 4.18 M/mm3 (4.20-5.40); White Blood Count 5.5 K/mm3 (4.8-10.8)
[2024-08-02 15:42] LABS: Albumin Level 4.2 g/dl (3.5-5.0); Chloride 110 mmol/L (98-107); Sodium 139 mmol/L (136-145)
[2024-08-02 15:43] LABS: Potassium 4.3 mmoL/L (3.5-5.1)
[2024-08-02 15:45] LABS: Alanine Aminotransferase 24 U/L (12-78); Anion Gap 6.3 mEq/L (5-15); Aspartate Amino Transferase 32 U/L (14-36); Bilirubin,Unconjugated 0.3 mg/dL (0.0-1.1); Blood Urea Nitrogen 22 mg/dl (7-17); Carbon Dioxide 27 mmol/L (22.0-30.0); Estimated Glomerular Filt Rate 97 ml/min (>60); GFR (African American) 117 ML/MIN (>60); Total Protein,Serum 6.6 g/dl (6.3-8.2)
[2024-08-02 15:46] LABS: Alkaline Phosphatase 85 U/L (38-126); Bilirubin,Direct 0.3 mg/dl (0.0-0.4); Bilirubin,Indirect 0.3 mg/dL (0.0-0.9); Bilirubin,Total 0.6 mg/dl (0.2-1.3); Calcium 8.9 mg/dl (8.4-10.2); Cholesterol 154 mg/dl (140-200); Glucose 161 mg/dl (74-100); HDL Cholesterol 52 mg/dl (40-60); Triglycerides 246 mg/dl (30-150); VLDL Cholesterol 49 mg/dL (0-40)
[2024-08-02 15:57] LABS: Direct LDL Cholesterol 63.74 mg/dL (100-129)
== END 2024-08-02 23:59 | disposition home or self-care (01) ==
LOC: LAB 14:05
PROVIDERS: PCP Family Medicine; Visit Provider Nurse Practitioner
DX: I10 Essential (primary) hypertension (principal); E78.2 Mixed hyperlipidemia; E78.5 Hyperlipidemia, unspecified
CPT/HCPCS: 36415; 80048; 80061; 80076; 84439; 84443; 85025

== ENCOUNTER 2024-08-07 10:26 | Outpatient (CLI) | payer MEDICARE, SELFPAY | END 2024-08-07 23:59 | disposition home or self-care (01) | LOC: LAB.DROPOF 08-08 10:27 | PROVIDERS: PCP Family Medicine; Visit Provider Family Medicine | DX: N39.0 Urinary tract infection, site not specified (principal) | CPT/HCPCS: 87086; 87088; 87186 ==

== ENCOUNTER 2025-02-07 10:49 | Outpatient (CLI) | payer MEDICARE, SELFPAY ==
--- NOTE | 2025-02-07 10:52 | CA_ITS ---
APPROVED REPORT EXAM: Comprehensive 2D, Doppler, and color-flow Echocardiogram Medical Apparatus Model Maker: Jade Thompson, RCS, RVS Ht: 5 ft 3 in Wt: 117lbs BSA: 1.54 BP: 109/50 mmHg Indications: Diastolic dysfunction, Murmur, Mitral regurgiatation, Tricuspid Regugitation, HTN, HLD, Palpitations 2D Dimensions Left Atrium 2.68 cm F: 2.7 - 3.8 LA Volume 48.80 mL LA Volume Index 31.69 mL/m2 (M/F) 16-34 M-Mode Dimensions RVDd 1.68 cm (0.9-2.6) LA Diam 3.50 cm (1.9-4.0) LVDd 5.04 cm (3.5-5.7) LVDs 3.30 cm (3.5-5.7) IVSd 0.81 cm (0.6-1.1) PWd 0.77 cm (0.6-1.1) EF (Teich) 63.40% EPSs 0.44 cm FS 34.50% EDV (Teich) 120.50 mL TAPSE 2.86 (<1.7) ESV (Teich) 44.10 mL LV Diastology E Decel Time 317 (160-240 msec) E/A Ratio 0.81 MED A' 7.90 cm/s LAT A' 11.30 cm/s Aortic Valve AoV Peak Dylan. 115.0 (50-130 cm/s) AO Peak GR. 5.30 mmHg AO Mean GR. 2.60 (<5 mmHg) AO VTI 24.3 (18-25 cm) ROSALBA (VTI) 2.36 (2.5-4.5 cm2) Mitral Valve MV A Velocity 73.0 (40-130 cm/s) E/A Ratio 0.81 Pulmonary Valve TN End VMAX 157.0 cm/s Tricuspid Valve TR P. Velocity 218.00 cm/s RAP Estimate 10.00 mmHg RVSP 29.00 mmHg Left Ventricle The left ventricle is normal size. The left ventricular systolic function is normal. The left ventricular ejection fraction is within the normal range. There is increased LV wall thickness. There is normal LV segmental wall motion. Transmitral Doppler flow pattern suggests impaired LV relaxation. LVEF is 55%. Right Ventricle The right ventricle is normal size. The right ventricular systolic function is normal. Atria The left atrium size is normal. The right atrium size is normal. There is no Doppler evidence of interatrial shunt. Aortic Valve Aortic valve is mildly thickened. There is no aortic valvular stenosis. Mild aortic regurgitation. Mitral Valve The mitral valve is normal in structure. No evidence of mitral valve stenosis. Mild mitral regurgitation. Tricuspid Valve Tricuspid valve is grossly normal in structure and function. Mild to moderate tricuspid regurgitation. The TR jet is eccentric and posteriorly directed. RVSP is 20-25 mmHg. Pulmonic Valve The pulmonary valve is normal in structure. Trace pulmonic regurgitation. Great Vessels The aortic root is normal in size. IVC is normal in size and collapses >50% with inspiration. Pericardium There is no pericardial effusion. Other Information Study Quality: Fair Conclusion Normal biventricular systolic function. Mild to moderate TR (eccentric posterior jet). Mild AI, mild MR. Electronically signed by : Lolita Lemus MD 02/13/2025 12:35:55
== END 2025-02-07 23:59 | disposition home or self-care (01) ==
LOC: RT 10:50
PROVIDERS: PCP Family Medicine; Visit Provider Nurse Practitioner
DX: I51.89 Other ill-defined heart diseases (principal)
CPT/HCPCS: 93306

== ENCOUNTER 2025-03-09 13:39 | Outpatient (CLI) | payer MEDICARE, SELFPAY | END 2025-03-09 23:59 | disposition home or self-care (01) | LOC: LAB.DROPOF 03-11 13:40 | PROVIDERS: PCP Nurse Practitioner Family; Visit Provider Nurse Practitioner Family | DX: N39.0 Urinary tract infection, site not specified (principal) | CPT/HCPCS: 87086; 87088; 87186 ==

== ENCOUNTER 2025-08-02 13:47 | Outpatient (CLI) | payer MEDICARE, SELFPAY ==
--- OUTSIDE RECORDS SUMMARY | 2025-07-09 13:30 | XMS_ITS | Encounter Summary ---
Author Organization Healthcare Address [address] [place] [address] Care Team Providers Care Supervisor Metal Cans Name Role Phone Mick Soto MD Primary Care Provider [phone] Reason for Visit * Reason Comments Follow-up Encounter Details Date Type Department Care Team (Late st Contact Info) Description 07/09/2025 1:30 PM EDT Office Visit Interventional Pain Medicine [address] [place] [id number] Dimitris Curry MD [address] [place] [address] Radiculopathy, cervical region (Primary Dx) Social History Tobacco Use Types Packs/Day Years Used Date Smoking Tobacco: Former Cigarettes Smokeless Tobacco: Never PHQ-2 Answer Date Recorded Patient Health Questionnaire-2 Score 0 12/13/2024 Comments No Sex and Gender Information Value Date Recorded Sex Assigned at Not on file Legal Sex Female 6:28 AM EDT Gender Identity Not on file Sexual Orientation Not on file documented as of this encounter Last Filed Vital Signs Vital Sign Reading Time Taken Comments Blood Pressure 105/72 07/09/2025 1:35 PM EDT Pulse 61 07/09/2025 1:35 PM EDT Temperature 35.9 C (96.7 F) 07/09/2025 1:35 PM EDT Respiratory Rate 16 07/09/2025 1:35 PM EDT Oxygen Saturation 97% 07/09/2025 1:35 PM EDT Inhaled Oxygen Concentration - - Weight 51.5 kg (113 lb 8.6 oz) 07/09/2025 1:35 P M EDT Height 160 cm (5' 3 ) 07/09/2025 1:35 PM EDT Body Mass Index 20.11 07/09/2025 1:35 PM EDT documented in this encounter Miscellaneous Notes * Progress Notes - Arabella Chavez, DELIVERY ENGINEER, DNP - 07/09/2025 1:30 PM EDT Images from the original note were not included. Interventional Pain Medicine Follow Up Note Subjective: Interval History: Patient presents today for reevaluation of symptoms. Previously had C7-T1 ALEX on 04/03/25, which is providing ongoing neck pain relief. She reports 0/10 pain today and is happy with her ongoing results. Global Pain Scale: 24/100 Chief Complaint: neck pain History of Present Illness: Jean Marie Corral is a 79 y.o. female with PMHx of pacemaker and HTN Patient referred by Dr. Mccoy for evaluation of Neck and arm pain Presents with: Site: left neck radiating into the palmar first three fingers Onset: off and on for the last two years Severity: as high as 10/10 but 3/10 Descriptors: throbbing, shooting Aggravating Factors: Not determined by patient Relieving Factors: None Associated Symptoms: paresthesias in the C7 dermatome No red flag symptoms such as fever, chills, night sweats, saddle anesthesia, urinary and bowel changes, numbness/tingling, no new weakness. Current Disabilities: limitations in ADLs/IADLs Functional Goals of Treatment: improvement in function Current Medication: None Previous Medication: Previous Conservative Treatment: heat ice medication trials modified activities physical therapy from 12/06/24-12/12/24 at [facility] in [place], [place] rest Previous Interventions/Consults: Neurosurgery C7-T1 ALEX on 04/03/25 Other Medical History Work Status/Pain related to work injury: None reports that she has quit smoking. Her smoking use included cigarettes. She has never used smokeless tobacco. Anticoagulation: Xarelto Review of Systems: CONSTITUTIONAL: denies fevers, chills HEENT: denies swallowing difficulties, sore throat CARDIOVASCULAR: denies chest pain, palpitations, syncope RESPIRATORY: denies shortness of breath, cough, wheezing GI: denies change in bowel habits, nausea, vomiting : denies change in bladder function, frequency, dysuria SKIN: denies rash, skin changes MSK: Per HPI NEURO: Per HPI PSYCH: Per HPI General Physical Exam: Constitutional Appears well-developed and well-nourished Head Normocephalic and atraumatic. Eyes Pupils are equal, round, and reactive to light. Neck Neck supple Cardiovascular Minimal to no peripheral edema, intact distal pulses Pulmonary/Chest Effort normal, no shortness of breath noted Neurological Alert and oriented to person, place, and time Skin Skin is warm and dry Psychiatric Normal mood and affect, behavior and judgment Neurologic & Musculoskeletal Exam Upper Extremity Region Exam Left (+/-) Right (+/-) Comments Cervical Musculature Tender w/ palpation - - Cervical Facet Pain w/ extension - - Upper Extremity Spurling's - - Upper Extremity Bakody - - Sensation Left Right Comments Neck Normal Normal C5: Shoulder Normal Normal C6: Thumb, radial aspect of hand/forearm (Radial Nerve) Normal Normal C7: Long finger (Median Nerve) Normal Normal C8: Little finger, ulnar aspect of hand/forearm (Ulnar n.) Normal Normal T1; Medial forearm/arm Normal Normal Motor Strength Left Right Comments C5: Shoulder abduction (Deltoid) 55 5 C5: Elbow flexion (Biceps, Brachialis) 04/02 55 C6: Wrist extension (ECRB, ECRL) 04/02 5 C7: Elbow extension (Triceps) / 5 C8: Finger flexion (Organ Grinder strength) /5, patient states weakness related to median nerve entrapment at the wrist 04/02 T1: Finger abduction 5/5 5/5 Reflexes Left Right C5: Biceps 2/4 2/4 C6: Brachioradialis 2/4 2/4 C7: Triceps 2/4 2/4 Mayes's Absent Absent Clonus Absent Absent Imaging/Studies: Cervical Spine MRI 09/04/24 : Multilevel DDD and facet hypertrophy through out. C4-5: moderate central stenosis and severe bilateral NF narrowing. C5-6 Moderate right and severe left NF narrowing. Cervical XR 11/17/24: reversal of lordotic curvature. Grade 1 retrolisthesis C2/3-C5/6 Labs: Assessment & Plan: Jean Marie Corral is a 79 y.o. female with #Cervical Radicular Syndrome Chronic Stable -Symptoms mostly in the C8 dermatome - s/p C7-T1 ALEX on 04/03/25 with ongoing 80% improvement in pain - Continue exercises - Can repeat C7-T1 ALEX at any time if needed - Knows to call if has increased pain to call and we can order repeat ALEX. If has different pain knows to call and can come in for reevaluation. Cosigned by Dimitris Curry MD at 07/09/2025 9:20 PM EDT Associated attestation - Dimitris Curry MD - 07/09/2025 9:20 PM EDT I attest to being involved in providing substantive part of the medical decision making in patient care. documented in this encounter Plan of Treatment Not on file documented as of this encounter Visit Diagnoses Diagnosis Radiculopathy, cervical region- Primary Brachial neuritis or radiculitis nos documented in this encounter Additional Health Concerns Assessment Noted Time A fall risk assessment has been complete d for the patient 07/09/2025 1:35 PM EDT A Body Mass Index follow-up plan has been documented for the patient 07/09/2025 9:21 PM EDT documented as of this encounter Care Teams Supervisor Metal Cans Relationship Specialty Start Date End Date Mick Soto MD [facility] [place] [address] PCP - General 08/23/24 documented as of this encounter
--- OUTSIDE RECORDS SUMMARY | 2025-08-02 13:50 | XMS_ITS | Encounter Summary ---
Author Organization Healthcare Address [address] [id number] Care Team Providers Care Speech Therapist Early Intervention Name Role Phone Mick Soto MD Primary Care Provider [phone] Encounter Details Date Type Department Care Team (Latest Contact Info) Description 07/09/2025 Travel Social History Tobacco Use Types Packs/Day Years Used Date Smoking Tobacco: Former Cigarettes Smokeless Tobacco: Never PHQ-2 Answer Date Recorded Patient Health Questionnaire-2 Score 0 12/13/2024 Comments No Sex and Gender Information Value Date Recorded Sex Assigned at Not on file Legal Sex Female 6:28 AM EDT Gender Identity Not on file Sexual Orientation Not on file documented as of this encounter Plan of Treatment Not on file documented as of this encounter Visit Diagnoses Not on filedocumented in this encounter Additional Health Concerns Assessment Noted Time A fall risk assessment has been complete d for the patient 07/09/2025 1:35 PM EDT A Body Mass Index follow-up plan has been documented for the patient 07/09/2025 9:21 PM EDT documented as of this encounter Care Teams Speech Therapist Early Intervention Relationship Specialty Start Date End Date Mick Soto MD [facility] [place] [address] PCP - General 08/23/24 documented as of this encounter
--- OUTSIDE RECORDS SUMMARY | 2025-08-02 13:50 | XMS_ITS | Clinical Summary ---
Author Organization [facility] Address [address] [place] [address] Care Team Providers Care Hat Measurer Name Role Phone Mick Soto MD Primary Care Provider [phone] Allergies Active Allergy Reactions Criticality Noted Date Comments Codeine Shortness of breath High 06/02/2017 Latex Rash Low 07/12/2017 Lisinopril Cough High 02/18/2023 Penicillins Other - please docum ent in the comment field Low 06/02/2017 Passed out Medications amLODIPine (Norvasc) 10 MG tablet 4 Active atorvastatin (Lipitor) 20 MG tablet 4 Active latanoprost (Xalatan) 0.005 % ophthalmic solution 1 drop. Active metoprolol succinate XL (Toprol-XL) 100 MG 24 hr tablet 4 Active Multiple Vitamin (Stress Formula) tablet Take 1 tablet by mouth 1 (one) time each day. Active brompheniramine -pseudoephedrin e-DM 30-2-10 MG/5ML syrup TAKE 5MLS BY MOUTH EVERY FOUR (4) TO SIX (6) HOURS NEEDED FOR COLD SYMPTOMS 4 Active Xarelto 20 MG tablet 4 Active methylPREDNISol one (Medrol Dospak) 4 MG tablets Follow schedule on package instructions 21 tablet 5 Active Additional Information Patient not taking.Reported on 07/09/2025 Encounters Date Type Department Care Team Description 07/09/2025 1:30 PM EDT Office Visit Interventional Pain Medicine [address] [place] [address] Dimitris Curry MD Radiculopathy, cervical region (Primary Dx) 07/09/2025 Travel 05/07/2025 1:30 PM EDT Office Visit Interventional Pain Medicine [address] [place] [address] Dimitris Curry MD Radiculopathy, cervical region (Primary Dx) 05/07/2025 Travel from Last 3 Months Social History Tobacco Use Types Packs/Day Years Used Date Smoking Tobacco: Former Cigarettes Smokeless Tobacco: Never Tobacco Cessation:Counseling Given: Not Answered PHQ-2 Answer Date Recorded Patient Health Questionnaire-2 Score 0 12/13/2024 Comments No Sex and Gender Information Value Date Recorded Sex Assigned at Not on file Legal Sex Female 6:28 AM EDT Gender Identity Not on file Sexual Orientation Not on file Last Filed Vital Signs Vital Sign Reading [...] Mass Index 20.11 07/09/2025 1:35 PM EDT Plan of Treatment Health Maintenance Due Date Last Done Comments [facility]-Bone Density Scan 1945 [facility]-Hepatitis C Screening 1945 [facility]-Medicare Annual Wellness (AWV) 1945 [facility]-Infant/Child/Adol SDOH Screenings 1945 [facility]- SDOH Screenings 1964 [facility]-Adult SDOH Screenings 1963 [facility]-Zoster Vaccines (2 of 3) 10/02/2012 2012 [facility]-Pneumococcal Vaccine: 50+ Years (2 of 2 - PCV) 09/29/2013 09/29/2012 [facility]-RSV Vaccine: 60+ Years or (1 - 1-dose 75+ series) 2021 [id number] Vaccine ( season) 2024 09/01/2023, 08/27/2021, 01/28/2021, Additional history exists [facility]-Influenza Vaccine (#1) 07/30/202510/16, 09/01/2023, 09/17/2022, Additional history exists [facility]-Depression Screening 12/13/2025 12/13/2024 [facility]-DTaP,Tdap,and Td Vaccines (3 - Td or Tdap) 2031 2021, 04/19/2017 HPV Vaccines Aged Out No longer eligi ble based on patient's age to complete this topic [facility]-HIB Vaccines Aged Out No longer e ligible based on patient's age to complete this topic [facility]-Hepatitis A Vaccines Aged Out No longer eligible based on patient's age to complete this topic [facility]-IPV Vaccines Aged Out No longer e ligible based on patient's age to complete this topic [facility]-Rotavirus Vaccines Aged Out No lo nger eligible based on patient's age to complete this topic Medical Devices Implanted Type Area Title Clerk Device Identifier Shelf Expiration Date Model / Serial / Lot Ingevity Rv [place] [employer] Lead-03/25/2022 Implanted:03/25 (Quantity not on file) Lead Chest TellWise [id number] / [id number] / Ingevity Ra [place] [employer] Lead-03/25/2022 Implanted:03/25 (Quantity not on file) Lead Chest [employer]Wise 7840 / [id number] / Accolade Mri [place] [employer] Pacemaker-2021 Implanted:03/25 (Quantity not on file) Pacemaker Chest [place] [employer] [id number] / [id number] / Description:Entire system im plant date: 03/25/2022 GENERATOR MODEL: [id number]/ Serial Number: [id number] RV LEAD MODEL: [id number]/ Serial Number: [id number] RA LEAD MODEL: 7840/ Serial Number: [id number] Insurance [facility], [facility] [employer] Care Teams Hat Measurer Relationship Specialty Start Date End Date Mick Soto MD [address] [place] [address] PCP - General 08/23/24
--- OUTSIDE RECORDS SUMMARY | 2025-08-02 13:50 | XMS_ITS | Clinical Summary ---
Author Organization [facility] Address [address] [place] [address] Phone Care Team Providers Care Marine Superintendent Name Role Phone Mick Soto MD Primary Care Provider [phone] Allergies Active Allergy Reactions Criticality Noted Date Comments Codeine Shortness Of Breath 06/02/2017 Latex Rash 07/12/2017 Penicillins Other (See Comments) 06/02/2017 Passed out Medications latanoprost (XALATAN) 0.005 % Opht Drops 1 Drop nightly. A ctive calcium carbonate-vitam in D3 250-125 mg-unit Oral Tablet Take 1 Tab by mouth 2 times daily (with meals). Active multivitamin, stress formula (ALLBEE VIT WITH C & B COMPLEX) Oral Tablet Take 1 Tab by mouth daily. Active Cranberry 500 mg Oral Capsule Take by mouth. Active aspirin 81 mg Oral Tablet, Chewable Take 1 Tablet by mouth daily. 30 Tablet 5 2 Active atorvastatin (LIPITOR) 40 mg Oral Tablet Take 1 Tablet by mouth nightly. 30 Tablet 5 2 Active sod sulf-pot chloride-mag sulf (SUTAB) 1.479-0.188- 0.225 gram Oral Tablet Take 24 Tablets by mouth Preprocedure for up to 1 dose. Take 1 kit per physician instructions 24 Tablet 3 Active Active Problems Problem Noted Date Diagnosed Date Tobacco abuse 12/28/2021 Acute cystitis without hematuria 12/28/2021 Prediabetes 12/28/2021 Acute CVA (cerebrovascular accident) 12/26/2021 Biliary colic Surgical History Surgery Date Site/Laterality Comments TUBAL LIGATION APPENDECTOMY ECTOPIC SURGERY HAND SURGERY L. CTR CHOLECYSTECTOMY, LAPAROSCOPIC 07/13/2017 N/A LAPAROSCOPIC CHOLECYSTECTOMY ; Surgeon: Venkat Lambert MD; Location: [facility] MAIN OR; Service: General CATARACT EXTRACTION W/ INTRAOCULAR LENS IMPLANT 12/13/[address] Brendan Oconnor CATARACT EXTRACTION W/ INTRAOCULAR LENS IMPLANT 12/27/[address] Brendan Oconnor Medical History Medical History Date Comments Heartburn Angina pectoris Headache SINUS Urinary tract infection 03/2017 Diverticulitis Social History Tobacco Use Types Packs/Day Years Used Date Smoking Tobacco: Some Days Cigarettes 0.3 53.7 Started: 11/29/1971 Smokeless Tobacco: Never Tobacco Cessation:Ready to Q uit: No Alcohol Use Standard Drinks/Week Comments Yes 0 (1 standard drink = 0.6 oz pur e alcohol) SOCIAL Overall Financial Resource Strain (CARDIA) Answe r Date Recorded How hard is it for you to pa y for the very basics like food, housing, medical care, and heating? Not hard at all 12/28/2021 Hunger Vital Sign Answer Date Recorded Within the past 12 months, y ou worried that your food would run out before you got the money to buy more. Never true 12/28/19 22 Within the past 12 months, t he food you bought just didn't last and you didn't have money to get more. Never true 12/28/2021 PRAPARE - Transportation Answer Date Re corded In the past 12 months, has l ack of transportation kept you from medical appointments or from getting medications? No 12/01 In the past 12 months, has l ack of transportation kept you from meetings, work, or from getting things needed for daily living? No 12/28/2021 Comments No Sex and Gender Information Value Date Recorded Sex Assigned at Not on file Legal Sex Female 2:31 AM EDT Gender Identity Not on file Sexual Orientation Not on file Obstetrics History Last Filed Vital Signs Vital Sign Reading Time Taken Comments Blood Pressure 145/85 12/28/2021 8:16 AM EST Pulse 61 12/28/2021 8:16 AM EST Temperature 36.7 C (98.1 F) 12/28/2021 8:16 AM EST Respiratory Rate 16 12/28/2021 8:16 AM EST Oxygen Saturation 99% 12/28/2021 8:16 AM EST Inhaled Oxygen Concentration - - Weight 52.2 kg (115 lb 1.3 oz) 12/28/2021 4:35 A M EST Height 160 cm (5' 3 ) 12/28/2021 4:35 AM EST Body Mass Index 20.39 12/28/2021 4:35 AM EST Plan of Treatment Health Maintenance Due Date Last Done Comments Wellness Exam Medicare 1948 Hepatitis C Screening 1963 Zoster (2 of 3) 10/02/2012 2012 Pneumococcal Vaccine 50+ (2 of 2 - PCV) 09/29/2013 09/29/2012 RSV or 60+ (1 - 1-dose 75+ series) 2021 COVID-19 Vaccine (4 - 2024-2 6 season) 2025 08/27/2021, 01/28/2021, 12/31/2020 Influenza Vaccine (#1) 2025 , 09/05/2020, 09/29/2012 DTaP/TDaP/Td (3 - Td or Tdap) 2031, 04/19/2017 Bone Density Screening Completed 6, 10/17/2013 Hepatitis B Vaccine Aged Out No longe r eligible based on patient's age to complete this topic Meningococcal B Vaccine Aged Out No l onger eligible based on patient's age to complete this topic Procedures Procedure Name Priority Date/Time Associated Diagnosis Comments DX BONE DENSITY AXIAL INCLUDING VERTEBRAL FRACTURE ASSESSMENT Routine 03/05/2016 11:21 AM EDT Asymptomatic menopausal state from Last 3 Months or Most Recently Relevant to Health Maintenance Results * DX BONE DENSITY AXIAL INCLUDING VERTEBRAL FRACTURE ASSESSMENT (03/05/2016 11:21 AM EDT) Anatomical Region Laterality Modality Dexa Scan Narrative 03/18/2016 9:29 AM EDT A dexa scan was performed. This exam was read and signed by a Radiologist. The signed final Dexa report should have already been faxed to the referring Doctor. Glory Mariscal MD IMG DEXA ORDERABLES Final Result from Last 3 Months or Most Recently Relevant to Health Maintenance Insurance KAREN LAYTON MR KAREN LAYTON MR KAREN LAYTON MR Advance Directives For more information, please contact: [phone] * Full Code (Latest Code Status on File) Date Activated Date Inactivated Comments 12/26/2021 3:21 AM 12/28/2021 5:03 PM * Full Code Date Activated Date Inactivated Comments 12/26/2021 3:20 AM 12/26/2021 3:21 AM Care Teams Marine Superintendent Relationship Specialty Start Date End Date Mick Soto MD PCP - General Family Medicine 10/17/13
--- OUTSIDE RECORDS SUMMARY | 2025-08-02 13:51 | XMS_ITS | Encounter Summary ---
Author Organization [facility] Address [address] [place] [address] Care Team Providers Care Signal Wirer Name Role Phone Mick Soto MD Primary Care Provider [phone] Reason for Referral * Consultation (Routine) - Closed Specialty Diagnoses / Procedures Referred By Rita cantor Referred To Contact Orthopaedic Surgery Diagnoses Cervical radiculopathy Vic Raya DO [address] [place] [address] [place] [address] Phone: tel: fax: Vineet Kelley MD [address] [facility] [address] [place] [address] Phone: tel: fax: Referral ID Status Reason Start Date Expiration Date Visits Re quested Visits Authorized [id number] Closed 10/03/2024 04/04/2026 1 1 Encounter Details Date Type Department Care Team (Latest Contact Info) Description 10/03/2024 Community [facility] [address] [place] [address] Vic Raya DO [address] [facility] [address] [place] [address] Cervical radiculopathy (Primary Dx) Social History Tobacco Use Types Packs/Day Years Used Date Smoking Tobacco: Never Assessed Comments Unknown Sex and Gender Information Value Date Recorded Sex Assigned at Not on file Legal Sex Female 6:28 AM EDT Gender Identity Not on file Sexual Orientation Not on file documented as of this encounter Plan of Treatment Scheduled Referrals Name Type Priority Associated Diagnoses Orde r Schedule Ambulatory referral to Orthopaedics Spine Outpatient Referral Routine Cervical radiculopathy Expected: 10/03/2024 (Approximate), Expires: 10/03/2025 documented as of this encounter Visit Diagnoses Diagnosis Cervical radiculopathy- Primary Brachial neuritis or radiculitis nos documented in this encounter Care Teams Signal Wirer Relationship Specialty Start Date End Date Mick Soto MD [address] [place] [address] PCP - General 08/23/24 documented as of this encounter
--- OUTSIDE RECORDS SUMMARY | 2025-08-02 14:51 | XMS_ITS | CCD ---
Author Organization Unknown Care Team Providers Care Filer Finish Name Role Phone Unavailable Primary Care Provider Unavailabl e Unavailable Chronic Care Management Unavaila ble Summary Purpose DataExchange Insurance Providers Payer name Policy type / Coverage type Covered constitution party ID Effective Begin Date Effective End Date [facility] [id number] Unknown Unknown Family History Family History data not found Medication Administered No Medication Administered data Reason For Visit No Reason For Visit data Medical Equipment No Medical Equipment data Advance Directives No Advance Directive data
--- OUTSIDE RECORDS SUMMARY | 2025-08-02 14:52 | XMS_ITS | CCD ---
Author Organization Unknown Care Team Providers Care Medical Physics Professor Name Role Phone Unavailable Primary Care Provider Unavailabl e Unavailable Chronic Care Management Unavaila ble Summary Purpose DataExchange Insurance Providers Payer name Policy type / Coverage type Covered libertarian ID Effective Begin Date Effective End Date [facility] [id number] Unknown Unknown Family History Family History data not found Medication Administered No Medication Administered data Reason For Visit No Reason For Visit data Medical Equipment No Medical Equipment data Advance Directives No Advance Directive data
[2025-08-02 15:08] LABS: Hematocrit 40.0 % (37.0-47.0); Hemoglobin 13.3 g/dL (12.2-16.2); Immature Granulocytes % 0.4 %; Mean Corpuscular HGB Conc 33.3 g/dL (31.8-35.4); Mean Corpuscular Hemoglobin 29.8 pg (27.0-31.2); Mean Corpuscular Volume 89.5 fl (81-99); Nucleated Red Blood Cells % 0 %; Platelet Count 338 K/mm3 (142-424); Red Blood Count 4.47 M/mm3 (4.20-5.40); Red Cell Distribution Width-SD 39.6 fL; White Blood Count 5.0 K/mm3 (4.8-10.8)
[2025-08-02 15:44] LABS: Albumin Level 4.7 g/dl (3.5-5.0)
[2025-08-02 15:45] LABS: Chloride 106 mmol/L (98-107); Potassium 4.7 mmoL/L (3.5-5.1); Sodium 140 mmol/L (136-145)
[2025-08-02 15:47] LABS: Alanine Aminotransferase 17 U/L (12-78); Anion Gap 10.7 mEq/L (5-15); Aspartate Amino Transferase 30 U/L (14-36); Bilirubin,Unconjugated 0.5 mg/dL (0.0-1.1); Blood Urea Nitrogen 20 mg/dl (7-17); Carbon Dioxide 28 mmol/L (22.0-30.0); Creatinine,Serum 0.60 mg/dl (0.52-1.04); Estimated Glomerular Filt Rate 97 ml/min (>60); GFR (African American) 117 ML/MIN (>60)
[2025-08-02 15:48] LABS: Alkaline Phosphatase 119 U/L (38-126); Bilirubin,Direct 0.1 mg/dl (0.0-0.4); Bilirubin,Indirect 0.5 mg/dL (0.0-0.9); Bilirubin,Total 0.6 mg/dl (0.2-1.3); Calcium 8.5 mg/dl (8.4-10.2); Cholesterol 157 mg/dl (140-200); Glucose 80 mg/dl (74-100); HDL Cholesterol 48 mg/dl (40-60); Magnesium 2.1 mg/dl (1.6-2.3); Total Protein,Serum 7.3 g/dl (6.3-8.2); Triglycerides 275 mg/dl (30-150)
[2025-08-02 16:06] LABS: Free T4 (Free Thyroxine) 1.20 ng/dl (0.78-2.19)
[2025-08-02 16:22] LABS: Thyroid Stimulating Hormone 0.81 uIU/mL (0.465-4.68)
== END 2025-08-02 23:59 | disposition home or self-care (01) ==
LOC: LAB 13:47
PROVIDERS: PCP Family Medicine; Visit Provider Nurse Practitioner
DX: E78.5 Hyperlipidemia, unspecified (principal); I10 Essential (primary) hypertension
CPT/HCPCS: 36415; 80048; 80061; 80076; 83735; 84439; 84443; 85025